=== PATIENT | male | born 1960 | race Two or more races ===

== ENCOUNTER 2017-12-10 12:29 | Outpatient (CLI) | payer OTHER | END 2017-12-10 12:40 | disposition home or self-care (01) | LOC: LAB 12:29 | DX: J11.1 Influenza due to unidentified influenza virus with other respiratory manifestations (principal) ==

== ENCOUNTER 2020-12-08 15:10 | Outpatient (CLI) | payer OTHER | END 2020-12-08 15:24 | disposition home or self-care (01) | LOC: SONOGRAMA 15:10 → MAMO-SONO 15:15 → SONOGRAMA 15:24 | PROVIDERS: ATTEND Internal Medicine | DX: N40.1 Benign prostatic hyperplasia with lower urinary tract symptoms (principal); Q61.01 Congenital single renal cyst ==

== ENCOUNTER 2020-12-11 09:38 | Outpatient (CLI) | payer OTHER | END 2020-12-11 09:42 | disposition home or self-care (01) | LOC: LAB 09:38 | PROVIDERS: ATTEND Radiology Diagnostic Radiology | DX: N20.0 Calculus of kidney (principal); N40.0 Benign prostatic hyperplasia without lower urinary tract symptoms; N40.1 Benign prostatic hyperplasia with lower urinary tract symptoms ==

== ENCOUNTER 2020-12-12 08:49 | Outpatient (CLI) | payer OTHER | END 2020-12-12 09:30 | disposition home or self-care (01) | LOC: RAD 08:49 → MAMO-SONO 09:30 → RAD 09:30 | PROVIDERS: ATTEND Internal Medicine | DX: K42.9 Umbilical hernia without obstruction or gangrene (principal); N40.1 Benign prostatic hyperplasia with lower urinary tract symptoms; R33.8 Other retention of urine; N40.0 Benign prostatic hyperplasia without lower urinary tract symptoms ==

== ENCOUNTER 2022-12-11 08:14 | Outpatient (CLI) | payer OTHER | END 2022-12-11 08:15 | disposition home or self-care (01) | LOC: LAB 08:14 | PROVIDERS: ATTEND Internal Medicine | DX: I70.91 Generalized atherosclerosis (principal); I10 Essential (primary) hypertension; E78.2 Mixed hyperlipidemia; N40.0 Benign prostatic hyperplasia without lower urinary tract symptoms; Z12.11 Encounter for screening for malignant neoplasm of colon; E03.1 Congenital hypothyroidism without goiter ==

== ENCOUNTER → 2022-12-13 09:46 | Outpatient (CLI) | payer OTHER | END | disposition home or self-care (01) | LOC: LAB 09:46 | PROVIDERS: ATTEND Internal Medicine | DX: I70.0 Atherosclerosis of aorta (principal); I10 Essential (primary) hypertension; E78.2 Mixed hyperlipidemia; N40.0 Benign prostatic hyperplasia without lower urinary tract symptoms; Z12.11 Encounter for screening for malignant neoplasm of colon; E03.1 Congenital hypothyroidism without goiter ==

== ENCOUNTER 2022-12-13 10:14 | Outpatient (CLI) | payer OTHER | END 2022-12-13 10:31 | disposition home or self-care (01) | LOC: TOM 10:14 | PROVIDERS: ATTEND Internal Medicine | DX: N20.0 Calculus of kidney (principal); N13.39 Other hydronephrosis; N02 Recurrent and persistent hematuria ==